=== PATIENT | male | born 1960 | race Caucasian/White ===

== ENCOUNTER → 2017-06-29 | Day surgery (SDC) | payer OTHER ==
[~2017-06-29] VITALS: Ht 185.4 cm; Wt 118.0 kg
[~2017-06-29] MED LIST: *ONDANSETRON 4 MG VIAL PERIprocedural Use ONLY ONE; ACETAMINOPHEN 1000 MG/100 ML VIAL IV ONE; ACETAMINOPHEN 500 MG CPLT PO PRN; ATROPINE SULFATE 1% OPHT SOLN 2 ML BTL ONE; BALANCED SALT SOLN OPHT IRRIG 15 ML BTL ONE; BUPIVACAINE HCL PF 0.75% 10 ML VIAL ONE; CANA100T PO; CHLORHEXIDINE GLUCONATE 2 % 1 PACK (2 CLOTHS) TOPICAL PRN; DEXAMETHASONE SOD PHOS 20 MG/5 ML VIAL ONE; DEXAMETHASONE SOD PHOS 4 MG/ML VIAL XX ONE; DO NOT ADM ANY ANTICOAGULANT DRUGS PRN; FAMOTIDINE 20 MG/2 ML VIAL ONE; GLIP10TA6 PO; INSULIN HUMAN REGULAR 1,000 UNITS/10 ML VIAL SQ PRN; LACTATED RINGER'S 1000 ML IV PRN; LIDOCAINE HCL 2% 50 ML VIAL ONE; METOPROLOL TARTRATE 25 MG TAB PO PRN; MIDAZOLAM HCL 2 MG/2 ML VIAL ONE; ONDANSETRON HCL 4 MG/2 ML VIAL IV PUSH ONE; PHENYLEPH/NS 1000 MCG/10 ML SYR IV ONE; POVIDONE IODINE 5% (ANTISEPSIS KIT) 4 APPLICATIONS EACH NARE PRN; PROPOFOL 200 MG/20 ML AMP IV ONE; SODIUM CHLORID 0.9% 500 ML IV PRN; TOBRAMYCIN SULFATE 0.3% OPTH OINT 3.5 GM TUBE ONE; TOBRAMYCIN SULFATE 0.3% OPTH OINT 3.5 GM TUBE RIGHT EYE ONE; TRIAMCINOLONE ACETONIDE 40 MG/ML VIAL I-SYNOVIAL ONE; TRIAMCINOLONE ACETONIDE 40 MG/ML VIAL ONE; ceFAZolin INJ 1,000 MG VIAL ONE; ceFAZolin INJ 1,000 MG VIAL XX ONE; ePHEDrine/NS 25 MG/5 ML SYR IV ONE
[2017-06-29 06:59] VITALS: BP 148/74; PULSE 83; RESP 18; TEMP 98.2; O2SAT 95
[2017-06-29] MEDS: ATROPINE SULFATE 1% OPHT SOLN 5 ML BTL RIGHT EYE SCH ×3 (07:00→07:30)
[2017-06-29] MEDS: CYCLOPENTOLATE HCL 1% OPHT SOLN 2 ML BTL RIGHT EYE SCH ×3 (07:01→07:30)
[2017-06-29] MEDS: PHENYLEPHRINE HCL 2.5% OPTH SOLN 2 ML BTL RIGHT EYE SCH ×3 (07:02→07:30)
[2017-06-29] MEDS: TROPICAMIDE 1% OPHT SOLN 15 ML BTL RIGHT EYE SCH ×3 (07:03→07:30)
[2017-06-29 07:32] LABS: AUTOMATED NEUTROPHIL # 5.2 TH/MM3 (1.8-7.7); BASOPHIL # 0.1 TH/MM3 (0-0.2); BASOPHIL % 0.7 % (0.0-2.0); EOSINOPHIL # 0.3 TH/MM3 (0-0.4); EOSINOPHIL % 3.6 % (0.0-4.0); HEMO FLAGS DIFF FINAL; LYMPH % 25.5 % (9.0-44.0); LYMPHOCYTE # 2.1 TH/MM3 (1.0-4.8); MEAN CELL VOLUME 86.5 FL (80.0-100.0); MEAN CORPUSCULAR HEMOGLOBIN 30.2 PG (27.0-34.0); MEAN CORPUSCULAR HGB CONC 34.9 % (32.0-36.0); MONO % 6.6 % (0.0-8.0); NEUT % 63.6 % (16.0-70.0); PLATELET COUNT 194 TH/MM3 (150-450); RED BLOOD COUNT 4.74 MIL/MM3 (4.50-5.90); RED CELL DISTRIBUTION WIDTH 13.1 % (11.6-17.2); WHITE BLOOD COUNT 8.2 TH/MM3 (4.0-11.0)
[2017-06-29 07:40] LABS: INTERNATIONAL NORMALIZED RATIO 0.9 RATIO
[2017-06-29 07:43] LABS: BICARBONATE 28.1 MEQ/L (21.0-32.0); POTASSIUM 4.5 MEQ/L (3.5-5.1); PROTHROMBIN TIME - PATIENT 9.9 SEC (9.8-11.6)
[2017-06-29 11:25] VITALS: BP 131/76; PULSE 83; RESP 16; TEMP 97.6; O2SAT 93
--- NOTE | 2017-06-29 12:13 | MP ---
cc: VENTURA BOLES M.D. Corrected Copy: 08/24/17 DATE OF SURGERY 06/29/2017 SURGEON Ventura Boles MD PREOPERATIVE DIAGNOSIS Tractional retinal detachment, proliferative diabetic retinopathy, right eye. POSTOPERATIVE DIAGNOSIS Tractional retinal detachment, proliferative diabetic retinopathy, right eye. PROCEDURE PERFORMED Pars plana vitrectomy, membrane peel, retinectomy, retinotomy, fluid/air exchange, laser, placement of 5000 centistokes silicone oil right eye. COMPLICATIONS Normal BLOOD LOSS Less than 1 cc. ANESTHESIA General HISTORY Mr. Glen Interiano had a severely tractionally detached retina with a visual acuity light perception in his right eye. He understood this was a grave situation. He understood this was unlikely to result in great vision, nonetheless, he opted for surgical intervention. He understood the risks, including bleeding, infection, loss of vision, high eye pressure, damage to the eye, helpless, cataract, failure of the operation, re-proliferation with scar tissue among other potential complications. Nonetheless, knowing all this, he agreed to go forward with surgical intervention. PROCEDURE NOTE Mr. Interiano was wheeled into the operating room. General anesthesia was induced by the anesthesia service using an LMA airway. The right eye was prepped and draped in the usual sterile fashion. A lid speculum was used to separate the eylids. Betadine was part of the preparation. Using a 23 gauge trocar, a beveled incision was made inferotemporally a half millimeter posterior to the limbus, placing the trocar into the vitreous cavity. The infusion line was turned on and proper placement was confirmed by direct visualization. Supranasal and supratemporal sclerotomies were fashioned 4 mm posterior to the limbus at the 10 and 2 o'clock meridian, also beveled technique with a 23 gauge trocar system. With light pipe in the left hand, vitrectomy tool in the right, a core vitrectomy was performed. I isolated table top tractional detachment from the vitreous base by dissecting the posterior hyaloid membrane 360 degrees along the tabletop detachment. I then addressed the detachment with traction within that structure. Over the optic nerve, I gently elevated and segmented neovascular tissue, which is mostly fibers, connecting the posterior and superior arcades. The retina relaxed nicely into place with that maneuver at least in the macular region. I then used the delamination technique to peal scar tissue along the superior arcade. This was done quite well. The retina seemed to go back into place nicely. Unfortunately, the inferior tractional tissue and traction attachment was quite dense and the tissue seemed to have harbored some preexisting breaks. That is probably why the detachment was so prominent inferiorly. At this point, it was felt that further peeling inferiorly would be probably fruitless. I used diathermy to create a line of diathermy between the area that was to be removed, and the retina that we wished to save. We used a vitrectomy tool to perform a retinotomy/retinectomy maneuver, and there was very little, if any, bleeding. The residual retina seemed to flattened very nicely. I applied panretinal photocoagulation, with specific emphasis on areas adjacent to the retinotomy/retinectomy, but also extending into the periphery 360 degrees. The retina that was left seemed to be attached. I placed a total of 900 dunham approximately, 0.1 second duration, 400 milliwatts of power, 532 nanometer frequency via the Endolaser probe. When this maneuver was completed, I performed a fluid/air exchange. I made sure that the retinotomy/retinectomy site stayed flat. There was no oozing of blood during this maneuver. I then injected 5000 centistoke silicone oil into the eye. It was done by the superior ports. These were sutured and when the silicone oil fill was adequate, I then removed the infusion line. Sutured the sclerotomy site as well using 7-0 Vicryl simple interrupted sutures. I injected 17 of Ancef, Decadron, and Kenalog 40, total amounts of about 0.5 cc in standard doses. The eye was patched, the patient was wheeled to the Recovery Room in excellent condition. Follow up in one day. He is to be face down, he is to call if he develops nausea, vomiting, or pain. MD AUSTIN Venegas/ALEX /11:35 AM 11:48 AM CARIN
--- NOTE | 2017-06-29 14:53 | EKG ---
Date Performed: 06/29/2017 Time Performed: 06:28:41 PTAGE: 57 years EKG: Sinus rhythm BASELINE ARTIFACT ST DEVIATION AND MODERATE T-WAVE ABNORMALITY, CONSIDER LATERAL ISCHEMIA ABNORMAL E CG INTERPRETATION BASED ON A DEFAULT AGE OF 41 YEARS NO PREVIOUS TRACING DOCTOR: Jose Goldstein Interpretating Date/Time 06/29/2017 14:52:32
== END | disposition home or self-care (01) ==
LOC: HSDC 05:43
PROVIDERS: ATTEND Ophthalmology
DX: E11.3531 Type 2 diabetes mellitus with proliferative diabetic retinopathy with traction retinal detachment not involving the macula, right eye (principal); I10 Essential (primary) hypertension; E66.9 Obesity, unspecified; Z68.34 Body mass index [BMI] 34.0-34.9, adult; Z79.84 Long term (current) use of oral hypoglycemic drugs; Z79.899 Other long term (current) drug therapy
CPT/HCPCS: 00145; 67113; 80051; 85025; 85610; 93005; C1814; J0690; J1100; J2250; J2370; J2405; J3010; J3301; J7120; J0131

== ENCOUNTER → 2017-10-03 | Day surgery (SDC) | payer OTHER ==
[~2017-10-03] MED LIST changes: -*ONDANSETRON 4 MG VIAL PERIprocedural Use ONLY ONE; -ACETAMINOPHEN 1000 MG/100 ML VIAL IV ONE; +ACETAMINOPHEN 325 MG TAB ONE; -ACETAMINOPHEN 500 MG CPLT PO PRN; -ATROPINE SULFATE 1% OPHT SOLN 2 ML BTL ONE; +ATROPINE SULFATE 1% OPHT SOLN 5 ML BTL ONE; -BALANCED SALT SOLN OPHT IRRIG 15 ML BTL ONE; -BUPIVACAINE HCL PF 0.75% 10 ML VIAL ONE; -CHLORHEXIDINE GLUCONATE 2 % 1 PACK (2 CLOTHS) TOPICAL PRN; +CYCLOPENTOLATE HCL 1% OPHT SOLN 2 ML BTL ONE; -DEXAMETHASONE SOD PHOS 20 MG/5 ML VIAL ONE; +DEXAMETHASONE SOD PHOS 4 MG/ML VIAL ONE; -DEXAMETHASONE SOD PHOS 4 MG/ML VIAL XX ONE; -DO NOT ADM ANY ANTICOAGULANT DRUGS PRN; +EPINEPHrine HCL (1:1000) 1 MG/ML VIAL ONE; -FAMOTIDINE 20 MG/2 ML VIAL ONE; -INSULIN HUMAN REGULAR 1,000 UNITS/10 ML VIAL SQ PRN; +LACTATED RINGER'S 1000 ML INJ 1,000 ML ONE; -LACTATED RINGER'S 1000 ML IV PRN; -LIDOCAINE HCL 2% 50 ML VIAL ONE; +MEPERIDINE HCL 25 MG/ML VIAL ONE; -METOPROLOL TARTRATE 25 MG TAB PO PRN; -PHENYLEPH/NS 1000 MCG/10 ML SYR IV ONE; +PHENYLEPHRINE HCL 2.5% OPTH SOLN 2 ML BTL ONE; -POVIDONE IODINE 5% (ANTISEPSIS KIT) 4 APPLICATIONS EACH NARE PRN; -SODIUM CHLORID 0.9% 500 ML IV PRN; +SODIUM CHLORIDE 0.9% INJ 10 ML ONE; -TOBRAMYCIN SULFATE 0.3% OPTH OINT 3.5 GM TUBE ONE; -TOBRAMYCIN SULFATE 0.3% OPTH OINT 3.5 GM TUBE RIGHT EYE ONE; +TOBRAMYCIN/DEXAMETHASONE OPTH OINT 3.5 GM TUBE ONE; -TRIAMCINOLONE ACETONIDE 40 MG/ML VIAL I-SYNOVIAL ONE; +TROPICAMIDE 1% OPHT SOLN 15 ML BTL ONE; -ceFAZolin INJ 1,000 MG VIAL XX ONE; -ePHEDrine/NS 25 MG/5 ML SYR IV ONE
--- NOTE | 2017-10-03 09:54 | TN ---
cc: VENTURA BOLES M.D. DATE OF SURGERY: 10/03/2017 SURGEON Ventura Boles MD PREOPERATIVE DIAGNOSIS 1. Tractional retinal detachment, right eye. 2. Proliferative diabetic retinopathy, right eye. 3. Retained silicone oil, right eye. POSTOPERATIVE DIAGNOSIS 1. Tractional retinal detachment, right eye. 2. Proliferative diabetic retinopathy, right eye. 3. Retained silicone oil, right eye. PROCEDURE PERFORMED Removal of silicone, pars plana vitrectomy, membrane peeling, laser photocoagulation, fluid-air exchange, right eye. COMPLICATIONS None. ESTIMATED BLOOD LOSS Less than 1 cc. ANESTHESIA General with LMA airway. HISTORY Mr. Glen Interiano is a patient with a longstanding history of traction retinal detachment, with macular involvement, which was repaired primarily approximately four months ago at [facility] main operating room. The retina remains stable with silicone oil in place following the surgery. We discussed removing the silicone oil versus leaving it in place. He opted for surgical removal of the silicone oil. He understood there are risks with surgical removal of silicone oil, including bleeding, infection, loss of vision, retinal detachment, high eye pressure, damage to the eye, health risks, among other potential complications foreseen and unforeseeable. Nonetheless, he agreed to move forward with surgical intervention. PROCEDURE NOTE Mr. Interiano was wheeled into the procedure room. General anesthesia was induced by the anesthesia service. The right eye was prepped and draped in the usual sterile fashion utilizing Betadine. A lid speculum was used to separate the eyelids. Using a 23-gauge trocar, a beveled incision was made inferotemporally 4 mm posterior to the limbus. Using a 23-gauge trocar an infusion line was thus placed in the right. under direct visualization confirmed proper placement. Superonasal and superotemporal sclerotomies were fashioned at the 10 and 2 o'clock meridia, both in beveled fashion with a 23-gauge trocar 4 mm posterior to the limbus. With the silicone boiler fireman in the right hand, I extracted silicone oil from the vitreous cavity. This was done uneventfully. With a light pipe in my left hand, the vitrectomy tool in the right, I performed a core vitrectomy. There was very little to no residual vitreous. I then attempted to strip some epiretinal membrane which was present along the inferior macula. Very small amounts of epiretinal membrane were thus grasped with End Grasping Forceps and removed from the eye. I then applied photocoagulation to the peripheral retina, applying approximately 1400 dunham, 0.1 second duration, 4 milliwatts of power using 532 nm frequency. I then performed a fluid-gas exchange, filling the eye with air. A soft-tip extrusion line was utilized in this maneuver. Care was taken during the laser to perform 360 degree photocoagulation as far peripherally as safe. I then removed the trocars from the eye and sutured each incision closed using a simple interrupted 7-0 Vicryl stitch. The eye was watertight, palpated and found to be normotensive. I injected sub-Tenon's Ancef and Decadron. The eye was patched with TobraDex ointment. The patient was wheeled to Recovery in excellent condition. Follow-up is in one day. He is to keep the shield over his eye until the next day, not fly or go high altitudes, maintain his wrist bracelet, and call me if he develops nausea, vomiting or pain. The charge nurse was instructed about the need for placement of a gas bubble and the need for no flying or high altitude travel and the need for positioning postoperatively. MD AUSTIN Venegas/KASIE /8:59 AM /9:57 AM
== END | disposition home or self-care (01) ==
LOC: ESDC 06:20
PROVIDERS: ATTEND Ophthalmology
DX: E11.3531 Type 2 diabetes mellitus with proliferative diabetic retinopathy with traction retinal detachment not involving the macula, right eye (principal); Z79.84 Long term (current) use of oral hypoglycemic drugs
CPT/HCPCS: 00145; 67113; J0171; J0690; J1100; J2175; J2250; J2405; J3010; J7120; J3301